=== PATIENT | male | born 1955 | race Caucasian/White ===

== ENCOUNTER 2018-02-06 08:30 | Day surgery (SDC) | payer OTHER ==
[2018-01-31 16:06] VITALS: BMI 35.6
--- NOTE | 2018-02-06 07:09 | HP ---
History & Physical Update - History History: No Change - Physical Physical: No Change - Assessment Assessment: No Change - Plan Plan: No Change (Initial H&P is located in his paper chart. No new complaints or medications. Scheduled for elective L2/3 laminectomy. Note: patient has documented right drop foot, ambulates with cane)
[2018-02-06] MEDS ORDERED: methylPREDNISolone ACET (DEPO) 40 MG/1 ML VIAL ONE (08:52)
[2018-02-06] MEDS ORDERED: LIDOCAINE 1%/EPI 1:100000 (20 ML MULTI DOSE VIAL) ONE (08:52)
[2018-02-06] MEDS ORDERED: THROMBIN (BOVINE) 5,000 UNIT VIAL TP ONE ×2 (08:52→11:09)
[2018-02-06] MEDS ORDERED: oxyCODONE HCL 10 MG SUSTAINED ACTING TABLET PO STA (08:52)
[2018-02-06] MEDS ORDERED: oxyCODONE HCL 10 MG SUSTAINED ACTING TABLET ONE (09:18)
[2018-02-06] MEDS ORDERED: MIDAZOLAM HCL 2 MG/2 ML SINGLE DOSE VIAL ONE ×3 (09:44→10:57)
[2018-02-06] MEDS ORDERED: BUPIVACAINE LIPOSOME/PF (EXPAREL) 266 MG/20 ML VIAL ONE (09:44)
[2018-02-06] MEDS ORDERED: BUPIVACAINE HCL/PF 2.5 MG/ML - 30 ML VIAL IJ ONE (09:46)
[2018-02-06] MEDS ORDERED: DEXAMETHASONE SOD PHOSPHATE 4 MG/1 ML VIAL ONE (10:13)
[2018-02-06] MEDS ORDERED: ceFAZolin SODIUM 1 GM VIAL ONE (10:13)
[2018-02-06] MEDS ORDERED: ONDANSETRON 4 MG/2 ML VIAL ONE (10:13)
[2018-02-06] MEDS ORDERED: CLINDAMYCIN PHOSPHATE 600 MG/4 ML VIAL ONE (10:35)
[2018-02-06] MEDS ORDERED: PROPOFOL 20 ML ONE (11:19)
--- NOTE | 2018-02-06 12:02 | OP ---
Operative Note - Note: Operative Date: 02/06/18 Pre-Operative Diagnosis: L2/3 stenosis with radiculopathy Operation: L2/3 laminectomy Post-Operative Diagnosis: Same as Pre-op Surgeon: Sam Muhammad Diabetes Education Coordinator: Brandon Lang Anesthesiologist/BACK END DEVELOPER: Ally Polk Anesthesia: Spinal Estimated Blood Loss (mls): 20 Fluid Volume Replaced (mls): 800 Operative Report Dictated: Yes
--- NOTE | 2018-02-06 12:03 | SURG ---
Surgery Fisher Eel Note Fisher Eel: Brandon Lang PA-C Date of Service: 02/06/18 Diagnosis: L2/3 stenosis with radiculopathy Procedure: L2/3 laminectomy I was present for the entirety of the operative procedure. For further detail, please refer to operative report. Visit type - Case Type Case Type: Scheduled - New patient This patient is new to me today: Yes Date on this admission: 02/06/18
[2018-02-06] MEDS ORDERED: PROMETHAZINE HCL 25 MG/1 ML VIAL IVPB PRN (12:06)
[2018-02-06] MEDS ORDERED: ONDANSETRON 4 MG/2 ML VIAL IVPUSH PRN (12:06)
[2018-02-06] MEDS ORDERED: oxyCODONE HCL 5 MG TABLET PO PRN ×2 (12:06)
--- NOTE | 2018-02-06 12:19 | OP ---
DATE OF OPERATION: 02/06/2018 PREOPERATIVE DIAGNOSIS: Spinal stenosis, L2-3. POSTOPERATIVE DIAGNOSIS: Spinal stenosis, L2-3. PROCEDURE PERFORMED: Revision laminectomy, L2-3. SURGEON: Sam Muhammad MD SUPERVISOR OF INSTRUCTION: ARABELLA Chowdhury ESTIMATED BLOOD LOSS: 50 mL INTRAVENOUS FLUIDS: Per Anesthesia. ANESTHESIA: Spinal/TLIP. COMPLICATIONS: None. DISPOSITION: Patient brought to the PACU in stable condition. INDICATIONS FOR SURGERY: The patient is a 62-year-old gentleman who had previously had a laminectomy from L3 down to S1. He had done well from the surgery until recently when he began to have pain from his back down his right leg. X-rays and MRI were completed which noted that he had spinal stenosis at L2-3 at that level. He had gone through an exhaustive course of treatment for this, which included medications, physical therapy as well as injections. Unfortunately, his pain continued to persist despite all this. At this point, risks, benefits, and alternatives were discussed, and the patient consented to surgery. DESCRIPTION OF PROCEDURE: Patient was brought to the operating room by the anesthesia staff. After appropriate patient identification was performed, spinal anesthesia was given. A TLIP block was also given. Patient was able to position himself prone onto the Aramis frame. All areas of bony prominences were well padded at this time. Two needles were placed into his back to annie off the L2-3 segment. X-ray was taken to confirm this as correct. Bailey were removed, and 10 mL of lidocaine with epinephrine were injected in his back at this time. His back was prepped and draped in a sterile manner. At this point, a timeout was completed. An incision was made from the top of L2 down to the bottom of L3. Dissection was carried down to the fascia. Fascia was split open at this time. Appropriate retractors were then placed in. A spinal needle was placed onto the L2-3 lamina to annie off the L2-3 level. An x-ray was taken to confirm this as correct. The needle was removed, and the microscope was brought in. Scar tissue was noted. It was removed at this time. A complete decompression was performed by removing portion of the inferior-superior facet such that by the end of the procedure, the L3 nerve root appeared to be well decompressed. All bleeding was well controlled at this time. Steroid was placed over the nerve root. FloSeal was placed over that. The fascia was closed with a No. 1 Vicryl suture. Subcutaneous tissues were closed with 2-0 Vicryl suture. Skin was closed with 3-0 Monocryl suture. Dermabond was applied. Steri-Strips were applied. A sterile dressing was applied. Patient was placed supine on the OR bed and brought to the PACU in stable condition. Sae MOE/[id number] MTDD
[2018-02-06 13:45] VITALS: TEMP 98.2
[2018-02-06 16:15] VITALS: BP 136/84; PULSE 78
== END 2018-02-06 16:17 | disposition home or self-care (01) ==
LOC: FASU 08:30
PROVIDERS: ATTEND Orthopaedic Surgery Orthopaedic Surgery of the Spine
PROC: 01NB0ZZ Release Lumbar Nerve, Open Approach (ICD-10-PCS; principal; 2018-02-06 10:55)
DX: M48.061 Spinal stenosis, lumbar region without neurogenic claudication (principal)
CPT/HCPCS: 72100-TC-FY; 94760